=== PATIENT | female | born 1955 | race Caucasian/White ===

== ENCOUNTER 2019-05-08 13:04 | Outpatient (REF) | payer BC, SELFPAY ==
[2019-05-08 21:28] LABS: ALT 28 U/L (12-78); AST 21 U/L (15-37); Calculated LDL 147 mg/dL; Cholesterol 255 mg/dL (50-200); HDL Cholesterol 85 mg/dL (40-60); Triglyceride 116 mg/dL (30-150)
== END 2019-05-08 13:24 ==
LOC: NCHCN 13:04
PROVIDERS: PCP Nurse Practitioner Family; Visit Provider Nurse Practitioner Family
DX: Z00.00 Encounter for general adult medical examination without abnormal findings (principal); Z13.220 Encounter for screening for lipoid disorders
CPT/HCPCS: 80061; 83721; 84450; 84460

== ENCOUNTER 2019-11-30 06:25 | Day surgery (SDC) | payer BC, SELFPAY ==
--- NOTE | 2019-11-30 06:26 | HPE_ITS ---
Assessment and Plan Assessment and plan (1) Encounter for colorectal cancer screening: Status: Acute Assessment and plan: A\\ The patient is here for Colonoscopy pre-op. Her last screening was 12 years ago and was unremarkable. She has no family history of colon cancer. She has not had any bowel habit changes. P\\ Colonoscopy under sedation Risks, benefits and complications have been reviewed. Complications include but are not limited to bleeding, pain, perforation, missed small lesion/polyp, sore throat, aspiration and adverse reaction to the medications. Questions were entertained and answered to their satisfaction and they wished to proceed. No guarantees were given or implied. History of Present Illness Narrative: 64 y/o female with history of presents for colonoscopy screening pre- op. Her last screening was 12 years ago, which was unremarkable. She denies a family history of colon cancer. She denies any changes in bowel habits describing slow motility. Denies bloody or black tarry stools, abdominal pain, diarrhea or constipation. She denies constitutional symptoms. Denies use of marijuana or any other recreational or illegal drugs. She denies chest pain, palpitations, dyspnea or dyspnea with exertion. 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 She exercises daily walking and does barn chores for her horse. She denies prior history or family history of adverse reactions or complications with anesthesia. Patient was originaly seen in September and she had to reschedule. There have not been any changes since she was seen in September. Review of Systems Constitutional Constitutional: Denies fever(s) Cardiovascular Cardiovascular: Denies chest pain, Denies chest pain at rest, Denies palpitations, Denies dyspnea and Denies dyspnea on exertion Respiratory Respiratory: Denies chest congestion, Denies cough, Denies dyspnea and Denies dyspnea on exertion Endocrine Endocrine: Denies palpitations [facility] Medical History Osteoarthritis (Chronic) Trigger finger, right (Acute) Surgical History History of breast augmentation (Acute) History of colonoscopy (Chronic) History of hernia repair (Chronic) History of varicose vein stripping (Acute) Social History Smoking/Tobacco Use Status: Never Alcohol Intake: current Alcohol Intake frequency: a few times a week Alcohol type: beer Drug use: Never Substance use type: does not use Do you feel safe at home: Yes Do you feel safe in your relationship?: Yes Meds Home Medications and Allergies Home Medications Medication Instructions Recorded Confirmed Type cholecalciferol (vitamin D3) 50 2,000 unit PO DAILY 05/19/19 11/26/19 History mcg (2,000 unit) capsule bisacodyl 5 mg tablet,delayed 5 mg PO ONCE #4 tab 09/10/19 09/10/19 Rx release polyethylene glycol 3350 17 238 g PO ONCE #238 gm 09/10/19 09/10/19 Rx gram/dose oral powder Allergies Allergy/AdvReac Type Severity Reaction Status Date / Time No Known Allergies Allergy Verified 09/10/19 09:08 Exam Const General: cooperative and comfortable Orientation: alert and oriented x3 HENMT Head: normocephalic and atraumatic Resp Effort & Inspection: normal respiratory effort Auscultation: clear to auscultation bilaterally Cardio Rate: regular rate Rhythm: regular rhythm Heart Sounds: no gallops, no murmurs and no rubs
[2019-11-30 06:29] VITALS: BP 127/82; PULSE 70; RESP 16; TEMP 36.8; O2SAT 98
--- NOTE | 2019-11-30 06:30 | W.COLOREPORT ---
Date of service: 11/30/19 Time of Service: 07: Colonoscopy Report Date of procedure: 11/30/19 Pre-op diagnosis general: Colon Cancer Screening Post-op diagnosis procedure note: same Procedure: Colonoscopy Surgeon: Clara Cardenas Anesthesia proc note operative: other (General/ ASA 2/Mady Pollack, FUNMI) Estimated blood loss (mL): 0 Pathology: none sent Complications: None Disposition: same day Indications: The patient is here for Colonoscopy pre-op. Her last screening was 12 years ago and was unremarkable. She has no family history of colon cancer. She has not had any bowel habit changes. Risks, benefits and complications have been reviewed. Complications include but are not limited to bleeding, pain, perforation, missed small lesion/polyp, sore throat, aspiration and adverse reaction to the medications. Questions were entertained and answered to their satisfaction and they wished to proceed. No guarantees were given or implied. Prep: Miralax/Dulcolax Procedure Start Time: : Procedure End Time: :50 Retraction Time: 15 minutes Findings: mild Diverticulosis of the sigmoid colon Procedure Description: After informed consent was obtained the patient was taken to the procedure room and placed in a left decubitous position. Monitors were applied and a time out was done. The patients name, date of , procedure, allergies to medications and metal in their body was reviewed. The patient was then sedated. Once sedated and comfortable a rectal exam was done. External exam was normal. Internal exam revealed a normal sphincter tone and no palpable masses. The scope was then introduced and retro-flexed. No internal hemorrhoids, polyps or masses were identified on -. The scope was then advanced to the cecum without difficulty. The TI and appendiceal orifice were identified. The prep was good. The scope was then slowly retracted over 15 minutes back into the rectum. There were no polyps. In the sigmoid colon there was mild diverticulosis without signs of infection. The scope was removed and the patient was woken up and taken back to Same day surgery in stable condition. The patient tolerated the procedure well and there were no immediate complications. Follow up: The patient should follow up in 10 years unless they develop changes in bowel habits or other new gastrointestinal complaints.
--- NOTE | 2019-11-30 06:31 | W.PM.DSUDISC ---
Discharge Plan Disposition Patient Disposition: HOME Condition: Good Discharge Details Reason For Visit: Colon Cancer Screening Attending Provider: Clara Cardenas Primary Care Provider: Ivana Cantu Home Meds and New Rx's Prescriptions: Continued cholecalciferol (vitamin D3) 2,000 unit capsule 2,000 unit PO DAILY RF: 0 Discontinued polyethylene glycol 3350 17 gram/dose powder 238 g PO ONCE Qty: 238 RF: 0 bisacodyl [Dulcolax (bisacodyl)] 5 mg tablet,delayed release (DR/EC) 5 mg PO ONCE Qty: 4 RF: 0 Discharge Instructions Instructions: Diverticulosis (DC) Additional Instructions: Findings: mild diverticulosis Follow up: 10 years Please call if you develop: fevers >101.5 Nausea or Vomiting Abdominal pain that is not transient DAY SURGERY UNIT POST ENDOSCOPY INSTRUCTIONS 1. Because there will be medication in your system for the next 24 hours, you may feel a little sleepy. Your coordination will be affected. Therefore: a. Do not drive or operate dangerous equipment for 24 hours. b. Do not drink alcohol beverages for 24 hours (not even beer). c. Plan to go home and rest for the day. 2. Generally there are no restrictions on your activity after a day or so has gone by, but you may feel a bit fatigued for a few days. 3 After you arrive home you may have a light meal and return to a normal diet as you can tolerate it without feeling sick to your stomach. 4. After surgery, you may feel pain or discomfort. This should be only transient, but if it persists please contact your doctor. 5. If there are any questions regarding the findings of your procedure, please feel free to contact your doctor. 6. If you are unable to contact your doctor with a problem, contact the hospital at [phone]. 7. Continue all your regular medications unless directed otherwise. I understand the above instructions and have no questions. Signature of Patient or Responsible Adult Escort Date/Time Name of Responsible Adult Escort Signature of Nurse Date/Time Activity:: Activity as Tolerated Diet:: high fiber diet Discharge Orders Discharge Orders: Discharge Order (Routine); Ordered 11/30/19 Ordered By: Clara Cardenas DS: Diagnosis Discharge Diagnosis (1) Encounter for colorectal cancer screening: Status: Resolved
[2019-11-30] MEDS: Lactated Ringers 1,000 ML 80 ML IV (06:53)
[2019-11-30 08:23] VITALS: BP 130/87; PULSE 73; RESP 16; TEMP 36.7; O2SAT 100
== END 2019-11-30 08:35 | disposition home or self-care (01) ==
LOC: SUR 09:54
PROVIDERS: PCP Nurse Practitioner Family; Visit Provider Surgery
PROC: 0DJD8ZZ Inspection of Lower Intestinal Tract, Via Natural or Artificial Opening Endoscopic (ICD-10-PCS; CPT 45378; principal; 2019-11-30 07:30)
DX: Z12.11 Encounter for screening for malignant neoplasm of colon (principal); K57.30 Diverticulosis of large intestine without perforation or abscess without bleeding
CPT/HCPCS: 45378; NC; J2001

== ENCOUNTER 2020-06-29 12:01 | Outpatient (REF) | payer BC, SELFPAY ==
--- NOTE | 2020-06-29 10:30 | PAPFT_PTH ---
PATIENT: Carmen Whitmore LOC: [facility]#:[id number] AGE/SX: 65/F ROOM: RE06/29/[address]: Ivana Cantu : 1955 BED: DIS: 06/29/2020 SPEC #: [id number] RECD: 06/30/20 12:49 STATUS: RUTH REQ #: [id number] KATHRYN: 06/29/20 10:[address]: Milagros Parkinson DEPT: [facility] Cytology RECD BY: Celestina Riggs ENTERED: 06/30/20 12:50 SP TYPE: PAPFT OTHR DR: Ivana Cantu Tissues: 1 - CX/ENDOCX FOR PAP SMEARS Procedures: PAP THIN PREP/UVM Screening HPV DNA PROBE Comments: [id number]
== END 2020-06-29 12:21 ==
LOC: NCHCN 12:01
PROVIDERS: PCP Nurse Practitioner Family; Visit Provider Nurse Practitioner Family
DX: R87.610 Atypical squamous cells of undetermined significance on cytologic smear of cervix (ASC-US) (principal); Z11.51 Encounter for screening for human papillomavirus (HPV)
CPT/HCPCS: 88142; 87624

== ENCOUNTER 2020-07-11 00:40 | Outpatient (CLI) | payer BC, SELFPAY ==
--- NOTE | 2020-07-11 09:30 | DI.US_ITS ---
EXAM: US PELVIS TRANSVAGINAL CLINICAL HISTORY: PELVIC PROLAPSE,N81.9,CHECK ENDO STRIPE AND PELVIC ANATOMY TECHNIQUE: Ultrasound performed using standard protocol. COMPARISON: No exams were available for comparison FINDINGS: Pelvic ultrasound was performed transabdominally and transvaginally. Uterus measures 53 x 30 x 41 mi llimeters. There are multiple apparent uterine fibroids including calcified 6 millimeter fundal prob able submucosal fibroid. Largest fibroid is a fundal 10 millimeter fibroid to the right of midline. The endometrial stripe is mildly thickened at 6 millimeters, the stripe is heterogeneous and shows i ncreased vascularity on Doppler evaluation with some small endometrial cysts also present. The ovaries are grossly unremarkable as visualized. Right ovary measures 21 x 6 x 7 millimeters, lef t ovary measures 22 x 8 x 8 millimeters. Limited scanning of the kidneys shows no specific abnormality. No free fluid in the pelvis. IMPRESSION: Multiple uterine fibroids noted. Thickened heterogeneous endometrial stripe with increased vascularity, this is an abnormal finding in a postmenopausal patient, tissue sampling recommended if clinically appropriate. DATA REPOSITORY:
== END 2020-07-11 01:00 ==
PROVIDERS: PCP Nurse Practitioner Family; Visit Provider Obstetrics & Gynecology
DX: D25.9 Leiomyoma of uterus, unspecified (principal); N81.9 Female genital prolapse, unspecified; R93.89 Abnormal findings on diagnostic imaging of other specified body structures
CPT/HCPCS: 76830; 76856

== ENCOUNTER 2020-07-18 11:40 | Outpatient (REF) | payer BC, SELFPAY ==
--- NOTE | 2020-07-18 10:30 | ENDOMET_PTH ---
PATIENT: Carmen Whitmore LOC: [facility] U#:[id number] AGE/SX: 65/F ROOM: RE07/18/[address]: Sarah Muller DO : 1955 BED: DIS: 07/18/2020 SPEC #: [id number] RECD: 07/18/20 12:56 STATUS: SOUT REQ #: [id number] KATHRYN: 07/18/20 10:[address]: Sarah uMller DEPT: Surgical Specimen RECD BY: Celestina Riggs ENTERED: 07/18/20 12:56 SP TYPE: Endomet OTHR DR: Ivana Cantu Tissues: 1 - ENDOMETRIUM BX/MINNA Procedures: GROSS AND MICRO LEVEL 4 Comments: [id number]
== END 2020-07-18 12:00 ==
LOC: LBN 11:40
PROVIDERS: PCP Nurse Practitioner Family; Visit Provider Obstetrics & Gynecology
DX: N85.00 Endometrial hyperplasia, unspecified
CPT/HCPCS: 88305

== ENCOUNTER 2020-08-01 00:46 | Outpatient (CLI) | payer BC, SELFPAY ==
--- NOTE | 2020-08-01 | DI.MAMMO_ITS ---
EXAM: MG MAMMO SCREENING 60 MIN DUR CLINICAL HISTORY: SCREENING, IMPLANTS TECHNIQUE: Mammograms were interpreted according to the usual protocol including computer analysis w [employer] CAD system, tomosynthesis and C-view imaging. COMPARISON: FINDINGS: The breasts are of moderate density. There are bilateral mammary implants. Routine views implant di splaced views were. No dominant mass or clumped microcalcification is identified in either breast. Current examination is compared with previous examination of August 2018 and there has been no [place] s interval change in appearance comparison the previous study. IMPRESSION: No specific evidence of malignancy at this time. Routine screening examinations are suggested at yea rly intervals due to the family history of breast carcinoma. BI-RADS Category 1 - Negative Breast Density - Category B - Scattered areas of fibroglandular density
== END 2020-08-01 01:06 ==
PROVIDERS: PCP Nurse Practitioner Family; Visit Provider Nurse Practitioner Family
DX: Z12.31 Encounter for screening mammogram for malignant neoplasm of breast (principal); Z80.3 Family history of malignant neoplasm of breast; Z98.82 Breast implant status
CPT/HCPCS: 77063; 77067

== ENCOUNTER 2021-07-04 15:22 | Outpatient (REF) | payer MEDICARE, SELFPAY ==
[2021-07-04 20:56] LABS: Anion Gap 6.5 mmol/L (3-11); BUN 20 mg/dL (7-18); CO2 31.5 mmol/L (21.0-32.0); Chloride 103 mmol/L (98-107); Estimated GFR 55.64 (mL/min/1.73m2); Glucose 96 mg/dL (74-106); Sodium 141 mmol/L (136-145)
== END 2021-07-04 15:23 | disposition home or self-care (01) ==
LOC: NCHCN 15:22
PROVIDERS: PCP Nurse Practitioner Family; Visit Provider Nurse Practitioner Family
DX: Z00.00 Encounter for general adult medical examination without abnormal findings (principal)
CPT/HCPCS: 80048

== ENCOUNTER 2022-06-19 19:16 | Outpatient (REF) | payer MEDICARE, SELFPAY ==
[2022-06-19 18:36] LABS: HCT 41.3 % (36.0-46.0); HGB 13.7 g/dL (11.2-15.7); MCH 31.7 pg (27.0-33.0); MCHC 33.2 % (32.0-36.0); MCV 96 fL (80-95); MPV 10.9 fL (8.0-11.0); Platelet Count 351 10^3/uL (130-400); RBC 4.32 10^6/uL (3.93-5.22); RDW 12.8 % (11.7-14.6); WBC 6.06 10^3/uL (4.4-10.8)
[2022-06-19 18:54] LABS: ALT 25 U/L (14-59); AST 20 U/L (15-37); Albumin 4.1 g/dL (3.4-5.0); Alkaline Phosphatase 98 U/L (46-116); Anion Gap 7.5 mmol/L (3-11); BUN 24 mg/dL (7-18); Bilirubin, Total 0.3 mg/dL (0.2-1.0); CO2 31.5 mmol/L (21.0-32.0); CREATININE 0.9 mg/dL (0.55-1.02); Calcium 9.2 mg/dL (8.5-10.1); Calculated LDL 131 mg/dL (<100); Chloride 101 mmol/L (98-107); Cholesterol 242 mg/dL (<200); Estimated GFR 70.51 (mL/min/1.73m2); Glucose 100 mg/dL (74-106); HDL Cholesterol 88 mg/dL (40-60); Potassium 4.2 mmol/L (3.5-5.1); Sodium 140 mmol/L (136-145); Total Protein 7.1 g/dL (6.4-8.2); Triglyceride 119 mg/dL (<150)
== END 2022-06-19 19:17 | disposition home or self-care (01) ==
LOC: NCHCN 19:16
PROVIDERS: PCP Nurse Practitioner Family; Visit Provider Nurse Practitioner Family
DX: E78.5 Hyperlipidemia, unspecified (principal)
CPT/HCPCS: 80053; 80061; 85027

== ENCOUNTER → 2022-09-07 00:22 | Outpatient (CLI) | payer MEDICARE, SELFPAY ==
--- OUTSIDE RECORDS SUMMARY | 2022-09-07 00:24 | XMS_ITS | Encounter Summary ---
:1955 Author Organization [facility] Address [address] [place] [address] Care Team Providers Name Role Phone Ivana Cantu [facility] Primary Care Provider Encounter Details Date Type Department Care Team Description 07/18/2020 Lab Requisition [facility] Sarah Muller Encounter for other Pathology & [address] general examination Laboratory Medicine [facility] [phone] [address] [facility] [phone] [place] [address] (Work) [phone] Social History Tobacco Use Types Packs/Day Years Used Date Smoking Tobacco: Never Assessed Sex Assigned at Date Recorded Not on file documented as of this encounter Plan of Treatment Not on filedocumented as of this encounter Procedures Procedure Name Priority Date/Time Associated Diagnosis Comme nts SURGICAL PATHOLOGY Today 07/18/2020 10:30 Encounter for othe r Results for this EDT general examination procedur e are in the results section. documented in this encounter Results SURGICAL PATHOLOGY (07/18/2020 10:30 EDT) Component Value Ref Test Analysis Performed At [facility] Range Method Time Signature Final A. ENDOMETRIUM, BIOPSY: 07/20/2020 [facility] EDICAL Diagnosis - Inactive/atrophic endometrium. 8:48 ED T CENTER - Fragments of benign endocervix also present. LABORATORY SERVICES Attestation There was 07/20/2020 [facility] Elect ronically significant 8:48 EDT CENTER signed can [place], resident/fellow LABORATORY Roxanne Sharp MD on involvement in SERVICES 07/20 at the diagnostic 0848 evaluation of this case. By the signature below, the attending physician certifies that they have personally conducted a gross and/or microscopic examination of the described specimens and rendered or confirmed the above diagnosis. Clinical Thickened 07/20/2020 [facility] History endometrium 8:48 EDT CENTER LABORATORY SERVICES Gross A. 07/20/2020 [facility] Description Received in formalin jos d with proper patient identification (initials D, L) and endometrial bx is a 0.6 x 0.2 x 0.2 cm aggregate of granular martines tissue. The specimen is submitted entirely in A1. 8:48 EDT CENTER LABORATORY FRANKY MALONE(ASCP) 07/18/2020 16:24 SERVICES Resident/Santiago Weir, 07/20/2020 [facility] w: DO Pamella 8:48 EDT CENTER LABORATORY SERVICES Performing Lab [facility] 07/20/2020 [facility] AL LAB 8:48 T CENTER LABORATORY SERVICES Scanned Images 07/20/2020 [facility] 8:48 EDT CENTER LABORATORY SERVICES Specimen Anatomical Location Collection Method Collection Time Received Time (Source) / Laterality / Volume Tissue ENTIRE ENDOMETRIUM 07/18/2020 10:30 07/18 / Unknown EDT 16:13 EDT Sarah Muller PATHOLOGY ORDERABLES Performing Organization Address City/State/ZIP Code Phon e Number [facility] [address] [place] [address] SERVICES documented in this encounter Visit Diagnoses Diagnosis Encounter for other general examination documented in this encounter Care Teams Web Content Developer Relationship Specialty Start Date End Date Ivana Cantu FNP PCP - General 10/07/19 [address] [place], [place] [id number] documented as of this encounter
--- OUTSIDE RECORDS SUMMARY | 2022-09-07 00:24 | XMS_ITS | Encounter Summary ---
:1955 Author Organization [facility] Address [address] [place] [address] Care Team Providers Name Role Phone Ivana Cantu [employer] Primary Care Provider Encounter Details Date Type Department Care Team Description 07/01/2020 Lab Requisition [facility] Ivana Cantu Encoun ter for general adult medical examination without abnormal findings; Pathology & [employer]NAGER [employer] Encounter for screening for malignant ne oplasm of cervix; Laboratory Medicine [address] for gynecological examination (general) (routine) without abnormal findings - [address] [phone] Social History Tobacco Use Types Packs/Day Years Used Date Smoking Tobacco: Never Assessed Sex Assigned at Date Recorded Not on file documented as of this encounter Plan of Treatment Not on filedocumented as of this encounter Procedures Procedure Name Priority Date/Time Associated Diagnosis Comme nts PAP TEST Today 06/29/2020 10:30 Encounter for general Re sults for this EDT adult medical procedure are in examination without the resu lts abnormal finding s section. Encounter for screening for malignant neoplasm of cervix Encounter for gynecological examination (general) (routine) without abnormal findings HUMAN PAPILLOMAVIRUS Today 06/29/2020 10:30 Encounter for ge neral Results for this (HPV) DETECTION-HIGH EDT adult medical proced ure are in RISK TYPES examination without the resu lts abnormal finding s section. Encounter for screening for malignant neoplasm of cervix Encounter for gynecological examination (general) (routine) without abnormal findings documented in this encounter Results HUMAN PAPILLOMAVIRUS (HPV) DETECTION-HIGH RISK TYPES (06/29/2020 10:30 EDT) [facility] Method Time Signature Human Negative Negative 07/11/2020 [facility] Papillomavirus 15:05 [facility] (HPV) LABORATORY Detection-High SERVICES Types Comment: No E6 or E7 mRNA is detected fr HPV types 16,18,31,33,35,39,45,51,52,56,58,59,66, and 68 by chute tender mediated amplification. Specimen Anatomical Collection Method Collection Time Receive d Time (Source) Location / / Volume Laterality Pap Test (Cervix 06/29/2020 10:30 020 and/or EDT 12:10 EDT Endocervix) Ivana Cantu [employer]NAGER [employer] MICROBIOLOGY - GENERAL ORDER [place] Performing Organization Address City/State/ZIP Code Phon e Number [facility] [address] [place] [address] SERVICES PAP TEST (06/29/2020 10:30 EDT) Component Value Ref Test Analysis Performed At [facility] Broadcast Grade [employer] Branding Graphics Display System Range Method Time Signature Specimens A. Cervix and/or 07/11/2020 [facility] Endocervix , 15:05 [facility] ThinPrep Imaging LABORATORY System with SERVICES Manual Evaluation Specimen Satisfactory for 07/11/2020 [facility] Adequacy Evaluation - 15:05 [facility] transformation LABORATORY zone component SERVICES present General Epithelial Cell 07/11/2020 [facility] Categorization Abnormality 15:05 [facility] LABORATORY SERVICES Descriptive Squamous Cell 07/11/2020 [facility] Diagnosis Abnormality - 15:05 [facility] Atypical LABORATORY squamous cells, SERVICES undetermined significance (ASC-US). Educational [facility] recommends following A SCCP's 2012 Updated Consensus Guidelines for the Management of Abnormal Cervical Cancer Screening Tests and Cancer Precursors (JLGTD, 2013; 17(5):S1-S27). Consensus guidelines are available online at www.asccp.org. 07/11/[address] [facility] DICAL Comments 15:05 [facility] LABORATORY SERVICES Attestation By the signature below, the attending physician certifies that they have personally conducted a gross and/or microscopic 1 [facility] Electronically examination of the described specimens and rendered or confirmed the above diagnosis. 15:05 [facility] signed by Edita Healy MD on 07/11/2020 at 1505 Clinical History See below 07/11/2020 [facility] 15:05 [facility] LABORATORY SERVICES HPV The result for the Human Pap illomavirus (HPV) Detection-High Risk Types is Negative. No E6 or E7 mRNA is detected from HPV types 16,18,31,33,35,39,45,51,52,56,58,59,66, and 68 by chute tender mediated 07/11/2020 [facility] amplification.Testing was pe rformed on specimen [id number] and was resulted on 07/11/2020 1454 EDT by RUDDY, LAB INSTRUMENT RESULTS IN 15:05 [facility] LABORATORY SERVICES Performing Lab [facility] 07/11/2020 [facility] AL LAB 15:05 [facility] LABORATORY SERVICES Scanned Images 07/11/2020 [facility] 15:05 [facility] LABORATORY SERVICES Specimen Anatomical Collection Method Collection Time Receive d Time (Source) Location / / Volume Laterality Pap Test (Cervix 06/29/2020 10:30 09/ 020 and/or EDT 15:42 EDT Endocervix) Ivana CALLAHAN PATHOLOGY ORDERABLES Performing Organization Address City/State/ZIP Code Phon e Number [facility] [address] [place] [address] SERVICES documented in this encounter Visit Diagnoses Diagnosis Encounter for general adult medical exam ination without abnormal findings Unspecified general medical examination Encounter for screening for malignant ne oplasm of cervix Screening for malignant neoplasm of the cervix Encounter for gynecological examination (general) (routine) without abnormal findings documented in this encounter Care Teams Hydraulic Press Operator Relationship Specialty Start Date End Date Ivana Cantu FNP PCP - General 10/07/19 [address] [place], [place] [id number] documented as of this encounter
--- NOTE | 2022-09-07 13:20 | DI.DEXA_ITS ---
Exam(s) XR DEXA BONE DENSITY W/WO SHEILA EXAM: XR DEXA BONE DENSITY W/WO SHEILA CLINICAL HISTORY: SCREENING FOR OSTEOPOROSIS Z13.820 MENOPAUSE Z78.0 TECHNIQUE: [employer] Horizon C densitometer analysis of left hip, lumbar spine and left forearm. COMPARISON: No exams were available for comparison FINDINGS: Lateral view of the thoracic and lumbar spine shows no evidence of compression fractures. Bone mineral density measurements of the lumbar spine correspond to a total T-score of -1.6, in the osteopenic range. Bone mineral density measurements of the left hip correspond to a total T-score of -0.8. The femora l neck T-score is -2.0, in the osteopenic range.. The left forearm bone mineral density measurements correspond to a T-score of the distal 3rd of -0.4 , in the normal range. However the total T-score is -1.9, in the osteopenic range.. IMPRESSION: Osteopenia and increased fracture risk.
--- NOTE | 2022-09-07 13:25 | DI.MAMMO_ITS ---
Exam(s) MG MAMMO SCREENING 60 MIN DUR EXAM: MG MAMMO SCREENING 60 MIN DUR CLINICAL HISTORY: SCREENING FOR BREAST CANCER Z12.39, HAS IMPLANTS TECHNIQUE: Mammograms were interpreted according to the usual protocol including computer analysis w ith CAD system, tomosynthesis and C-view imaging. Additional implant displaced views were performed. COMPARISON: 2017 and 2019 FINDINGS: The breasts are composed of scattered fibroglandular densities, Breast Density category B. Bilateral saline breast implants are noted which appear intact. No suspicious masses or suspicious m icrocalcifications are seen. No skin thickening or abnormal axillary lymph nodes are seen. There has been no significant change from prior exams. IMPRESSION: BI-RADS Category 1, Negative mammogram Yearly screening mammography is recommended. Breast Density - Category B, scattered fibroglandular densities. A negative radiographic report should not delay biopsy if a dominant or clinically suspicious mass is present. Up to ten percent of cancers are not identified on mammography. A negative report may reinforce clinical impression. Adenosis and dense breasts may obscure an underlying neoplasm. False positive reports average 6 to 10%. Patient will receive a letter notifying them of these results.
== END ==
PROVIDERS: PCP Nurse Practitioner Family; Visit Provider Nurse Practitioner Family
DX: Z78.0 Asymptomatic menopausal state (principal); Z12.31 Encounter for screening mammogram for malignant neoplasm of breast; Z13.820 Encounter for screening for osteoporosis; M85.89 Other specified disorders of bone density and structure, multiple sites
CPT/HCPCS: 77063; 77067; 77080

== ENCOUNTER 2023-07-30 09:40 | Outpatient (REF) | payer MEDICARE, SELFPAY ==
--- NOTE | 2023-07-30 09:00 | PAPFT_PTH ---
PATIENT: Carmen Whitmore LOC: [facility]#:[id number] AGE/SX: 68/F ROOM: RE07/30/[address]: Ivana Cantu : 1955 BED: DIS: 07/30/2023 SPEC #: [id number] RECD: 07/31/23 13:10 STATUS: RUTH REErin #: [id number] KATHRYN: 07/30/23 09:[address]: Ivana Cantu DEPT: [facility] Cytology RECD BY: Celestina Riggs Tissues: 1 - CX/ENDOCX FOR PAP SMEARS Procedures: PAP THIN PREP/UVM Screening HPV DNA PROBE Comments: [id number]
[2023-07-30 15:28] LABS: HCT 43.6 % (36.0-46.0); HGB 14.3 g/dL (11.2-15.7); MCH 31.6 pg (27.0-33.0); MCHC 32.8 % (32.0-36.0); MCV 97 fL (80-95); MPV 10.8 fL (8.0-11.0); Platelet Count 308 10^3/uL (130-400); RBC 4.52 10^6/uL (3.93-5.22); RDW 13.2 % (11.7-14.6); RDW-SD 47.3 fL; WBC 4.18 10^3/uL (4.4-10.8)
[2023-07-30 15:47] LABS: ALT 26 U/L (14-59); AST 20 U/L (15-37); Albumin 4.3 g/dL (3.4-5.0); Alkaline Phosphatase 101 U/L (46-116); Anion Gap 9.4 mmol/L (3-11); BUN 23 mg/dL (7-18); Bilirubin, Total 0.3 mg/dL (0.2-1.0); CO2 29.6 mmol/L (21.0-32.0); CREATININE 0.8 mg/dL (0.55-1.02); Calcium 9.7 mg/dL (8.5-10.1); Calculated LDL 172 mg/dL (<100); Chloride 103 mmol/L (98-107); Cholesterol 298 mg/dL (<200); Estimated GFR 80.71 (mL/min/1.73m2); Glucose 94 mg/dL (74-106); HDL Cholesterol 100 mg/dL (40-60); Sodium 142 mmol/L (136-145); Total Protein 7.6 g/dL (6.4-8.2); Triglyceride 134 mg/dL (<150)
== END 2023-07-30 09:41 | disposition home or self-care (01) ==
LOC: NCHCN 09:40
PROVIDERS: PCP Nurse Practitioner Family; Visit Provider Nurse Practitioner Family
DX: E78.5 Hyperlipidemia, unspecified (principal); Z12.4 Encounter for screening for malignant neoplasm of cervix; Z11.51 Encounter for screening for human papillomavirus (HPV); Z01.419 Encounter for gynecological examination (general) (routine) without abnormal findings
CPT/HCPCS: 80053; 80061; 85027; 88142; 87624

== ENCOUNTER → 2023-09-10 00:41 | Outpatient (CLI) | payer MEDICARE, SELFPAY ==
--- NOTE | 2023-09-10 11:15 | DI.MAMMO_ITS ---
Exam(s) MG MAMMO SCREENING 60 MIN DUR EXAM: MG MAMMO SCREENING 60 MIN DUR CLINICAL HISTORY: Screening Z12.31, implants TECHNIQUE: Mammograms were interpreted according to the usual protocol including computer analysis w [employer] CAD system, tomosynthesis and C-view imaging. Additional implant displaced views were performed. COMPARISON: 2017 through 2021 FINDINGS: The breasts are composed of scattered fibroglandular densities, Breast Density category B. No suspicious masses or suspicious microcalcifications are seen. Bilateral saline implants are again noted, unchanged. No skin thickening or abnormal axillary lymph nodes are seen. There has been no significant change from prior exams. IMPRESSION: BI-RADS Category 1, Negative mammogram Yearly screening mammography is recommended. Breast Density - Category B, scattered fibroglandular densities. A negative radiographic report should not delay biopsy if a dominant or clinically suspicious mass is present. Up to ten percent of cancers are not identified on mammography. A negative report may reinforce clinical impression. Adenosis and dense breasts may obscure an underlying neoplasm. False positive reports average 6 to 10%. Patient will receive a letter notifying them of these results.
== END ==
PROVIDERS: PCP Nurse Practitioner Family; Visit Provider Nurse Practitioner Family
DX: Z12.31 Encounter for screening mammogram for malignant neoplasm of breast (principal); R92.323 Mammographic fibroglandular density, bilateral breasts
CPT/HCPCS: 77063; 77067

== ENCOUNTER 2024-08-04 22:13 | Outpatient (REF) | payer MEDICARE, SELFPAY ==
[2024-08-04 14:52] LABS: HCT 42.6 % (36.0-46.0); HGB 13.7 g/dL (11.2-15.7); MCH 31.4 pg (27.0-33.0); MCHC 32.2 % (32.0-36.0); MCV 98 fL (80-95); MPV 10.5 fL (8.0-11.0); Platelet Count 324 10^3/uL (130-400); RBC 4.36 10^6/uL (3.93-5.22); RDW 13.1 % (11.7-14.6); RDW-SD 47.4 fL; WBC 3.79 10^3/uL (4.4-10.8)
[2024-08-04 15:03] LABS: ALT 24 U/L (14-59); AST 22 U/L (15-37); Alkaline Phosphatase 105 U/L (46-116); Anion Gap 7.6 mmol/L (3-11); BUN 21 mg/dL (7-18); Bilirubin, Total 0.45 mg/dL (0.2-1.0); CO2 32.4 mmol/L (21.0-32.0); CREATININE 0.9 mg/dL (0.55-1.02); Calcium 9.3 mg/dL (8.5-10.1); Calculated LDL 155 mg/dL (<100); Chloride 104 mmol/L (98-107); Cholesterol 273 mg/dL (<200); Estimated GFR 69.64 (mL/min/1.73m2); Glucose 90 mg/dL (74-106); HDL Cholesterol 99 mg/dL (40-60); Potassium 4.2 mmol/L (3.5-5.1); Sodium 144 mmol/L (136-145); Triglyceride 97 mg/dL (<150)
--- OUTSIDE RECORDS SUMMARY | 2024-08-04 22:14 | XMS_ITS | Referral Summary ---
Author Organization Health system Address [address] [place] [address] Care Team Providers Care Enrichment Specialist Name Role Phone Ivana Cantu [employer] Primary Care Provider [phone] Social History Tobacco Use Types Packs/Day Years Used Date Smoking Tobacco: Never Assessed Interpersonal Safety Answer Date Record ed Physically Hurt Never 07/12/2020 Verbally Threaten Not on file 07/12/2020 Sex and Gender Information Value Date Recorded Sex Assigned at Not on file Gender Identity Not on file Sexual Orientation Not on file Plan of Treatment Not on file Care Teams Enrichment Specialist Relationship Specialty Start Date End Date Ivana Cantu FNP [address] [facility] [address] [place] [phone] PCP - General 10/07/19
--- OUTSIDE RECORDS SUMMARY | 2024-08-04 22:14 | XMS_ITS | Clinical Summary ---
Author Organization [facility] Address [address] [place] [address] Care Team Providers Care Supervisor Core Shop Name Role Phone PepeIvana SINDY Primary Care Provider [phone] Social History Tobacco Use Types Packs/Day Years Used Date Smoking Tobacco: Never Assessed Interpersonal Safety Answer Date Record ed Physically Hurt Never 07/12/2020 Verbally Threaten Not on file 07/12/2020 Sex and Gender Information Value Date Recorded Sex Assigned at Not on file Gender Identity Not on file Sexual Orientation Not on file Plan of Treatment Health Maintenance Due Date Last Done Comments Hepatitis C Screen 1955 RSV Immunization ( o r 60+ Years) (1 - 1-dose 60+ series) 2016 Fall Risk Screening 2021 COVID-19 Vaccine ( season) 2023 Care Teams Supervisor Core Shop Relationship Specialty Start Date End Date Ivana Cantu FNP [address] [place] [address] [address] [place] [phone] PCP - General 10/07/19
--- OUTSIDE RECORDS SUMMARY | 2024-08-04 22:14 | XMS_ITS | Encounter Summary ---
Author Organization [facility] Address [address] [place] [address] Care Team Providers Care Hr Internship Name Role Phone Ivana Cantu Primary Care Provider [phone] Encounter Details Date Type Department Care Team (Latest Contact Info) Description 08/05/2023 Lab Requisition [facility] Pathology & Laboratory Medicine - [facility] [address] [place] [address] Ivana Cantu FNP [address] [facility] [address] [place] [address] Encounter for gynecological examination (general) (routine) without abnormal findings; Encounter for screening for malignant neoplasm of cervix; Encounter for general adult medical examination without abnormal findings Social History Tobacco Use Types Packs/Day Years Used Date Smoking Tobacco: Never Assessed Interpersonal Safety Answer Date Record ed Physically Hurt Never 07/12/2020 Verbally Threaten Not on file 07/12/2020 Sex and Gender Information Value Date Recorded Sex Assigned at Not on file Gender Identity Not on file Sexual Orientation Not on file documented as of this encounter Plan of Treatment Not on file documented as of this encounter Procedures Procedure Name Priority Date/Time Associated Diagnosis Comments PAP TEST Today 07/30/2023 9:00 EDT Encounter for gynecological examination (general) (routine) without abnormal findings Encounter for screening for malignant neoplasm of cervix Encounter for general adult medical examination without abnormal findings HPV DNA DETECTION WITH GENOTYPING, PCR Today 07/30/2023 9:00 EDT Encounter for gynecological examination (general) (routine) without abnormal findings Encounter for screening for malignant neoplasm of cervix Encounter for general adult medical examination without abnormal findings documented in this encounter Results * HUMAN PAPILLOMAVIRUS (HPV) DETECTION-HIGH RISK TYPES (07/30/2023 9:00 EDT) HPV other High Risk types, PCR Negative Negative 08/09/2023 15:56 EDT [facility] Comment:No E6 or E7 mRNA is detected from HPV types 16,18,31,33,35,39,45,51,52,56,58,59,66, and 68 by bacon stringer mediated amplification. Pap Test CERVIX UTERI STRUCTURE / Unknown 07/30/2023 9:00 EDT 08/08/2023 15:21 EDT Ivana LLOYDP MICROBIOLOGY - GENER AL ORDERABLES [facility] [address] [place] [id number] * PAP TEST (07/30/2023 9:00 EDT) Specimens A. Cervix and/or Endocervix , ThinPrep Imaging System with Manual Evaluation 08/09/2023 15:56 EDT [facility] Specimen Adequacy Satisfactory for Evaluation - transformation zone component present 08/09/2023 15:56 EDT [facility] General Categorization Negative for intraepithelial lesion or malignancy 08/09/2023 15:56 T [facility] Attestation . 08/09/2023 15:56 T [facility] at 1556 Clinical History See below 08/09/20 23 15:56 T [facility] HPV The result for the Human Papillomavirus (HPV) Detection-High Risk Types is Negative. No E6 or E7 mRNA is detected from HPV types 16,18,31,33,35,39 ,45,51,52,56,58,5 9,66, and 68 by bacon stringer mediated amplification.Jocelynn ting was performed on specimen [id number] and was resulted on 08/09/2023 1556 EDT by RUDDY, LAB INSTRUMENT RESULTS IN 08/09/2023 15:56 EDT [facility] Performing Lab [facility] 08/09/2023 15:56 EDT [facility] Scanned Images 08/09/2023 15:56 EDT [facility] Pap Test CERVIX UTERI STRUCTURE / Unknown 07/30/2023 9:00 EDT 08/05/2023 10:02 EDT Ivana CALLAHAN PATHOLOGY ORDERABLES [facility] [address] [place] [address] documented in this encounter Visit Diagnoses Diagnosis Encounter for gynecological examination (general) (routine) without abnormal findings Encounter for screening for malignant neoplasm of cervix Screening for malignant neoplasm of the cervix Encounter for general adult medical examination without abnormal findings Unspecified general medical examination documented in this encounter Care Teams Hr Internship Relationship Specialty Start Date End Date Ivana Cantu FNP [address] [place] [address] [place] [phone] PCP - General 10/07/19 documented as of this encounter
--- OUTSIDE RECORDS SUMMARY | 2024-08-04 22:14 | XMS_ITS | Encounter Summary ---
Author Organization [facility] Address [address] [place] [address] Care Team Providers Care Plant Manager Name Role Phone Ivana Cantu Primary Care Provider [phone] Encounter Details Date Type Department Care Team (Latest Contact Info) Description 07/01/2020 Lab Requisition [facility] Pathology & Laboratory Medicine - [facility] [address] [place] [address] Ivana Cantu FNP [address] [facility] [address] [place] [address] Encounter for general adult medical examination without abnormal findings; Encounter for screening for malignant neoplasm of cervix; Encounter for gynecological examination (general) (routine) without abnormal findings Social History Tobacco Use Types Packs/Day Years Used Date Smoking Tobacco: Never Assessed Sex and Gender Information Value Date Recorded Sex Assigned at Not on file Gender Identity Not on file Sexual Orientation Not on file documented as of this encounter Plan of Treatment Not on file documented as of this encounter Procedures Procedure Name Priority Date/Time Associated Diagnosis Comments PAP TEST Today 06/29/2020 10:30 EDT Encounter for general adult medical examination without abnormal findings Encounter for screening for malignant neoplasm of cervix Encounter for gynecological examination (general) (routine) without abnormal findings HPV DNA DETECTION WITH GENOTYPING, PCR Today 06/29/2020 10:30 EDT Encounter for general adult medical examination without abnormal findings Encounter for screening for malignant neoplasm of cervix Encounter for gynecological examination (general) (routine) without abnormal findings documented in this encounter Results * HUMAN PAPILLOMAVIRUS (HPV) DETECTION-HIGH RISK TYPES (06/29/2020 10:30 EDT) HPV other High Risk types, PCR Negative Negative 07/11/2020 15:05 [facility] Comment:No E6 or E7 mRNA is detected from HPV types 16,18,31,33,35,39,45,51,52,56,58,59,66, and 68 by nurse intern mediated amplification. Papanicolaou smear specimen (specimen) CERVIX UTERI STRUCTURE / Unknown 06/29/2020 10:30 EDT 07/07/2020 12:10 EDT Ivana Cantu OUTBOARD TECHNICIAN MICROBIOLOGY - GENER AL ORDERABLES [facility] [address] [place] [address] * PAP TEST (06/29/2020 10:30 EDT) Specimens A. Cervix and/or Endocervix , ThinPrep Imaging System with Manual Evaluation 07/11/2020 15:05 [facility] Specimen Adequacy Satisfactory for Evaluation - transformation zone component present 07/11/2020 15:05 [facility] General Categorization Epithelial Cell Abnormality 07/11/2020 15:05 [facility] Descriptive Diagnosis Squamous Cell Abnormality - Atypical squamous cells, undetermined significance (ASC-US). 07/11/2020 15:05 [facility] Educational Comments [facility] recommends following ASCCP's 2012 Updated Consensus Guidelines for the Management of Abnormal Cervical Cancer Screening Tests and Cancer Precursors (JLGTD, 2013; 17(5):S1-S27). Consensus guidelines are available online at www.asccp.org. 07/11/2020 15:05 [facility] Attestation By the signature below, the attending physician certifies that they have personally conducted a gross and/or microscopic examination of the described specimens and rendered or confirmed the above diagnosis. 07/11/2020 15:05 [facility] at 1505 Clinical History See below 07/11/20 15:05 [facility] HPV The result for the Human Papillomavirus (HPV) Detection-High Risk Types is Negative. No E6 or E7 mRNA is detected from HPV types 16,18,31,33,35,3 9,45,51,52,56,58 ,59,66, and 68 by nurse intern mediated amplification.Te sting was performed on specimen [id number] and was resulted on 07/11/2020 1454 EDT by RUDDY, LAB INSTRUMENT RESULTS IN 07/11/2020 15:[address] [facility] Performing Lab [facility] 07/11/2020 15:[address] [facility] Scanned Images 07/11/2020 15:[address] [facility] Papanicolaou smear specimen (specimen) CERVIX UTERI STRUCTURE / Unknown 06/29/2020 10:30 EDT 07/01/2020 15:42 EDT Ivana CALLAHAN PATHOLOGY ORDERABLES [facility] [address] [place] [address] documented in this encounter Visit Diagnoses Diagnosis Encounter for general adult medical examination without abnormal findings Unspecified general medical examination Encounter for screening for malignant neoplasm of cervix Screening for malignant neoplasm of the cervix Encounter for gynecological examination (general) (routine) without abnormal findings documented in this encounter Care Teams Plant Manager Relationship Specialty Start Date End Date Ivana Cantu FNP [address] [place] [phone] PCP - General 10/07/19 documented as of this encounter
--- OUTSIDE RECORDS SUMMARY | 2024-08-04 22:14 | XMS_ITS | Encounter Summary ---
Author Organization [facility] Address [address] [place] [address] Care Team Providers Care Is/It Project Manager Name Role Phone Ivana Cantu SINDY Primary Care Provider [phone] Encounter Details Date Type Department Care Team (Late st Contact Info) Description 07/18/2020 Lab Requisition [facility] Pathology & Laboratory Medicine - [facility] [address] [place] [address] Sarah Muller [address] [place] [address] [place] [address] Encounter for other general examination Social History Tobacco Use Types Packs/Day Years [...] Procedure Name Priority Date/Time Associated Diagnosis Comments SURGICAL PATHOLOGY Today 07/18/2020 10 :30 EDT Encounter for other general examination documented in this encounter Results * SURGICAL PATHOLOGY (07/18/2020 10:30 EDT) Final Diagnosis A. ENDOMETRIUM, BIOPSY: - Inactive/atrophic endometrium. - Fragments of benign endocervix also present. 07/20/2020 8:48 EDT [facility] Attestation There was significant resident/fellow involvement in the diagnostic evaluation of this case. By the signature below, the attending physician certifies that they have personally conducted a gross and/or microscopic examination of the described specimens and rendered or confirmed the above diagnosis. 07/20/2020 8:48 EDT [facility] at 0848 Clinical History Thickened endometrium 07/20/2020 8:48 EDT [facility] Gross Description A. Received in formalin labelled with proper patient identification (initials D, L) and endometrial bx is a 0.6 x 0.2 x 0.2 cm aggregate of granular martines tissue. The specimen is submitted entirely in A1. FRANKY MALONE(ASCP) 07/18/2020 16:24 07/20/2020 8:48 EDT [facility] Resident/Santiago w: Pamella Weir DO 07/20/2020 8:48 EDT [facility] Performing Lab [facility] 07/20/2020 8:48 EDT [facility] Scanned Images 07/20/2020 8:48 EDT [facility] Tissue ENTIRE ENDOMETRIUM / Unknown 07/18/2020 10:30 EDT 07/18/2020 16:13 EDT Sarah Muller PATHOLOGY ORDERABLES [facility] [address] [place] [address] documented in this encounter Visit Diagnoses Diagnosis Encounter for other general examination documented in this encounter Care Teams Is/It Project Manager Relationship Specialty Start Date End Date Ivana Cantu FNP [address] [place] [address] [address] [place] [phone] PCP - General 10/07/19 documented as of this encounter
--- OUTSIDE RECORDS SUMMARY | 2024-08-04 22:14 | XMS_ITS ---
Author Organization Unknown ALLERGIES AND ADVERSE REACTIONS No information ASSESSMENT No information CHIEF COMPLAINT No information MEDICATIONS No information OBJECTIVE DATA No information PHYSICAL EXAMINATION No information TREATMENT PLAN Planned Care Start Date Provider Encounter for Check-up [id number] PROBLEMS No information RESULTS No information REVIEW OF SYSTEMS No information SUBJECTIVE DATA No information VITAL SIGNS No information
== END 2024-08-04 22:14 | disposition home or self-care (01) ==
LOC: NCHCN 22:13
PROVIDERS: PCP Nurse Practitioner Family; Visit Provider Nurse Practitioner Family
DX: E78.5 Hyperlipidemia, unspecified (principal)
CPT/HCPCS: 80053; 80061; 85027

== ENCOUNTER 2024-09-17 02:11 | Outpatient (CLI) | payer MEDICARE, SELFPAY ==
--- NOTE | 2024-09-17 | DI.DEXA_ITS ---
Exam(s) XR DEXA BONE DENSITY W/WO SHEILA EXAM: XR DEXA BONE DENSITY W/WO SHEILA CLINICAL HISTORY: Asymptomatic postmenopausal state, Z78.0 TECHNIQUE: Routine DEXA evaluation of the lumbar spine, hip, or forearm. COMPARISON: CR XR DEXA BONE DENSITY W/WO SHEILA from 09/07/2022 FINDINGS: Performed on a HoloMetaps unit. Lateral image: No compression fracture evident. Lumbar Spine total T-score: -1.2. Prior reading in 2021 was -1.6. Hip total T-score:-0.9. Prior reading in 2021 was -0.8 Independent reading at the level of the femoral neck yields T-score of -2.0 Forearm total T-score: -0.6 IMPRESSION: Bone mineral density measures in the osteopenia range. Fracture risk is moderate. Note: Any spine fracture indicates 5x risk for subsequent spine fracture and 2x risk for subsequent h ip fracture. World Health Organization criteria for BMD interpretation classify patients: Normal...... T- Score at or above -1.0 Osteopenic... T- Score between -1.0 and -2.5 Osteoporosis... T-Score at or below -2.5
--- NOTE | 2024-09-17 10:38 | DI.MAMMO_ITS ---
Exam(s) MG MAMMO SCREENING 60 MIN DUR EXAM: MG MAMMO SCREENING 60 MIN DUR CLINICAL HISTORY: Screening, Z12.39; Pt has implants. TECHNIQUE: Bilateral full field digital CC and MLO mammographic images were obtained with 3D tomosyn thesis and utilizing computer aided detection (CAD). COMPARISON: Prior mammograms were reviewed. FINDINGS: Again noted are intact appearing bilateral retropectoral saline implants. There are no new spiculated masses nor malignant appearing microcalcification groups. There is no significant architectural distortion nor skin thickening-retraction. IMPRESSION: No radiographic evidence of malignancy. BI-RADS Category 1 - Negative Breast Density - Category B - Scattered areas of fibroglandular density Breast density Category C or D implies that the patient has dense breast tissue. Dense breast tissue can make it harder to find cancer on a mammogram. Dense breast tissue is also associated with an incr eased risk of breast cancer. This information about the result of the mammogram report was provided to the patient to raise their awareness. Use this report when you speak with the patient about their risks for breast cancer, which includes their family history. At that time, you may recommend additional screening tests (Ultrasoun d or MRI) as these tests may add significant information. A negative radiographic report should not delay biopsy if a dominant or clinically suspicious mass is present. Up to ten percent of cancers are not identified on mammography. A negative report may reinforce clinical impression. Adenosis and dense breasts may obscure an underlying neoplasm. False positive reports average 6 to 10%. Patient will receive a letter notifying them of these results.
== END 2024-09-17 02:31 ==
LOC: DI 02:11
PROVIDERS: PCP Nurse Practitioner Family; Visit Provider Nurse Practitioner Family
DX: Z78.0 Asymptomatic menopausal state (principal); Z13.820 Encounter for screening for osteoporosis; Z12.31 Encounter for screening mammogram for malignant neoplasm of breast
CPT/HCPCS: 77063; 77067; 77080

== ENCOUNTER 2025-09-24 16:57 | Outpatient (REF) | payer MEDICARE, SELFPAY ==
[2025-09-24 21:05] LABS: HCT 39.6 % (36.0-46.0); HGB 13.1 g/dL (11.2-15.7); MCH 31.8 pg (27.0-33.0); MCHC 33.1 % (32.0-36.0); MCV 96 fL (80-95); MPV 10.5 fL (8.0-11.0); Platelet Count 301 10^3/uL (130-400); RBC 4.12 10^6/uL (3.93-5.22); RDW 13.2 % (11.7-14.6); RDW-SD 47.4 fL; WBC 5.16 10^3/uL (4.4-10.8)
[2025-09-24 21:33] LABS: ALT 16 U/L (10-49); AST 24 U/L (<34); Albumin 4.3 g/dL (3.2-5.0); Alkaline Phosphatase 90 U/L (46-116); Anion Gap 9.5 mmol/L (3-11); BUN 23 mg/dL (9-23); Bilirubin, Total 0.3 mg/dL (0.2-1.2); CO2 29.5 mmol/L (20.0-31.0); Calcium 9.4 mg/dL (8.3-10.6); Chloride 104 mmol/L (98-107); Cholesterol 252 mg/dL (<200); Glucose 82 mg/dL (74-106); HDL Cholesterol 89 mg/dL (>or=50); Potassium 4.0 mmol/L (3.5-5.1); Sodium 143 mmol/L (136-145); Total Protein 6.6 g/dL (5.7-8.2)
== END 2025-09-24 16:58 | disposition home or self-care (01) ==
LOC: NCHCN 16:57
PROVIDERS: PCP Nurse Practitioner Family; Visit Provider Nurse Practitioner Family
DX: E78.5 Hyperlipidemia, unspecified (principal); Z00.00 Encounter for general adult medical examination without abnormal findings
CPT/HCPCS: 80053; 80061; 85027